=== PATIENT | male | born 1975 | race Caucasian/White ===

== ENCOUNTER 2017-05-24 13:54 | Emergency (ER) | payer BC ==
[~2017-05-24] VITALS: Ht 177.8 cm; Wt 84.0 kg
[2017-05-24 13:56] VITALS: TEMP 36.9; Ht 177.8 cm; Wt 84.0 kg
[2017-05-24] MEDS ORDERED: LORA-741 PO (14:09)
[2017-05-24] MEDS ORDERED: ATOM100C PO (14:09)
[2017-05-24] MEDS ORDERED: XYLOCAINE 1%/SOD BICARB 20 ML VIAL INFIL ONE (14:15)
--- NOTE | 2017-05-24 14:48 | EMERGENCY ROOM VISIT NOTE ---
History First contact with patient: 13:57 Chief Complaint: LACERATION/CUT (SUT/DERMABOND) Stated Complaint: CUT LEFT INDEX FINGER ON CAN LID Nursing Triage Summary: lac to left 3rd digit today while putting stuff in the trash cut his finger on can lid History of Present Illness The patient is a 41 year old male who presents to the Emergency Room with complaints of a laceration to his left third finger. He was putting trash in a can when he cut his finger on the lid of a can that had pie filling in it. The patient does report moderate bleeding from the wound. He denies any loss of function, paresthesias or numbness of the fingertip. He rates his discomfort a 2 out of 10. The patient is [id number], and last tetanus immunization was in 2011. Review of Systems 6 system review was performed and was negative except for pertinent positives and negatives as indicated in history of present illness Past Medical/Surgical History Medical Problems: (1) No significant past medical history Surgical Problems: (1) No history of previous surgery Family History Unremarkable Social History Smoking Status: Never Smoker Alcohol Use: occasionally Marital Status: Housing Status: lives with family Occupation Status: employed Current/Historical Medications Scheduled Atomoxetine Hcl (Strattera), 100 MG PO DAILY Scheduled PRN Lorazepam (Ativan), 0.5 MG PO Q6H PRN for Anxiety Physical Exam Vital Signs Date Time Temp Pulse Resp B/P (MAP) Pulse Ox O2 Delivery O2 Flow Rate FiO2 05/24/17 13:56 36.9 73 16 130/74 97 Room Air Physical Exam CONSTITUTIONAL: Healthy and well nourished. Alert and oriented X 3 with positive affect. HEENT: Normocephalic, atraumatic. Pupils equal, round and reactive. MUSCULOSKELETAL: Examination of the left third finger shows a 2.5 cm laceration on the volar aspect of the finger. The patient has full flexor strength. Capillary refill is less than 2 seconds. INTEGUMENTARY: No rash or other significant dermatologic conditions noted. NEUROLOGIC: Left third fingertip is sensory intact. Medical Decision & Procedures Procedure Laceration repair was performed under digital block anesthesia after receiving verbal consent from the patient. Using buffered 1% lidocaine without epinephrine, good digital block anesthesia was administered. The wound was then peripherally cleansed with iodine, then the wound was irrigated with approximately 150 mL of normal saline. Exploration of the wound does not show any involvement of the underlying tendons or bone. The wound was approximated using 5-0 nylon simple interrupted sutures. A bacitracin pressure dressing was applied. The patient tolerated procedure well with minimal blood loss. ED Course Patient history and physical exam were performed. Nurse's notes were reviewed. Vital signs were reviewed and were normal. Laceration repair was performed under digital block anesthesia. The patient was provided additional verbal and written wound care instructions. Ice and elevation for swelling. Ibuprofen and Tylenol in alternating fashion as needed for additional pain relief. Suture removal in 12-14 days, or seek reevaluation sooner for any signs of wound infection. The patient was happy with plan of care, voiced understanding of all discharge instructions, and denied any pain at the time of discharge. Medical Decision Impression Primary Impression: Laceration of left middle finger Departure Information Dispostion Home / Self-Care Forms HOME CARE DOCUMENTATION FORM, IMPORTANT VISIT INFORMATION Patient Instructions [facility] Additional Instructions Keep wound clean and dry. Do not allow any crusting or dried blood to accumulate on sutures. If this occurs, use a 1:1 solution of hydrogen peroxide/ water on a Q-tip to clean the wound. Use an antibiotic ointment for 3-4 days, then let wound dry. Suture removal in 12-14 days. Return sooner for any signs of infection (increasing redness, swelling, drainage). Ice and elevate for swelling and pain. Ibuprofen 600 mg and Tylenol 1000 mg every 6 hrs for pain. Problem Qualifiers Primary Impression: Laceration of left middle finger Encounter type: initial encounter Damage to nail status: without damage Foreign body presence: without foreign body Qualified Codes: S61.213A - Laceration without foreign body of left middle finger without damage to nail, initial encounter
[2017-05-24 14:54] VITALS: BP 128/71; PULSE 87; O2SAT 100
== END 2017-05-24 14:55 | disposition home or self-care (01) ==
LOC: C.EDB 13:56 → C.EDD 14:55
DX: S61.211A Laceration without foreign body of left index finger without damage to nail, initial encounter (principal); W45.8XXA Other foreign body or object entering through skin, initial encounter; Z79.899 Other long term (current) drug therapy